=== PATIENT | male | born 1960 | race Hispanic/Latino ===

== ENCOUNTER 2017-07-07 06:13 | Day surgery (SDC) | payer BC ==
[2017-06-30 10:58] VITALS: BMI 29.1
[2017-07-07] MEDS ORDERED: Lidocaine 2% Inj (20ml) ONE (07:29)
[2017-07-07] MEDS ORDERED: Bupivacaine 0.5% Inj(30mL) ONE (07:29)
[2017-07-07] MEDS ORDERED: Propofol 10 mg/ml Inj (20 ML) ONE (07:42)
[2017-07-07] MEDS ORDERED: Midazolam 2 MG/2 ML VIAL ONE (07:44)
[2017-07-07] MEDS ORDERED: Morphine 2 mg/ml ISec IVP PRN (08:09)
[2017-07-07] MEDS ORDERED: Lactated Ringer's 1,000 ML IV SCH (08:15)
[2017-07-07] MEDS ORDERED: Oxycodone/Acetaminophen 5/325 mg Tab PO PRN ×2 (08:41)
--- NOTE | 2017-07-07 08:50 | PCM.SURG1 ---
<Griffin Childs - Last Filed: 07/07/17 08:47> Surgeon's Initial Post Op Note - Surgeon's Notes Surgeon: Dr. Dilip Mckeon DPM Night Clerk Auditor: Dr. Griffin Childs DPM PGY-1 Type of Anesthesia: IV Sedation, Local Anesthesia Administered By: Dr. Briceño Pre-Operative Diagnosis: osteomyelitis of 5th digit to right foot Operative Findings: see dication. materials: 3-0 vicryl, 3-0 nylon, 10cc of 1:1 .5% marcaine plain and 2% lidocaine pain Post-Operative Diagnosis: same Operation Performed: amputation of 5th digit osteomyelitis of right foot Specimen/Specimens Removed: 5th right proximal phalanx Estimated Blood Loss: EBL {In ML}: 5 Blood Products Given: N/A Drains Used: No Drains Post-Op Condition: Good Date of Surgery/Procedure: 07/07/17 Time of Surgery/Procedure: 07:45 <Dilip Mckeon - Last Filed: 07/07/17 11:50> Attending/Attestation - Attestation I have personally seen and examined this patient.: Yes I have fully participated in the care of the patient.: Yes I have reviewed all pertinent clinical information: Yes
--- NOTE | 2017-07-07 08:55 | CP.SDSHP ---
Same Day Surgery H & P - History Proposed Procedure: amputation of 5th digit osteomyelitis of right foot Pre-Op Diagnosis: osteomyelitis of 5th digit to right foot - Previous Medical/Surgical History Endocrine/Metabolic: Diabetes - Allergies Allergies: Allergies No Known Allergies Allergy (Verified 09/13/16 17:07) - Physical Exam Vital Signs: Vital Signs 07/07/17 06:35 Temperature 97.9 F Pulse Rate 75 Respiratory 18 Rate Blood Pressure 126/75 O2 Sat by Pulse 98 Oximetry - {Optional Preform as Required} Integument: WNL - Impression Impression: Pt was seen and examined in SDS. Pt NPO status was confirmed. All Pre-op testing and clearance was in the chart. Pt has exhausted all conservative treatment at this time and is opting for surgical intervention. Pt was explained procedure and post-operative course. All pt's questions were answered to satisfaction. No guarantees were made. Pt understands all risks, benefits and complications of procedure. Pt will follow-up with Dr. Mckeon - Date & Time Date: 07/07/17 Time: 07:40 Short Stay Discharge - Short Stay Discharge Admitting Diagnosis/Reason for Visit: OSTEOMYELITIS M86.171 Disposition: HOME/ ROUTINE Referrals: Juan Kelly MD [Primary Care Provider] - Instructions: Oxycodone/Acetaminophen (By mouth) Additional Instructions (Diet, Activity): --Patient in good/stable condition for discharge home. Pt to resume medications per medical reconciliation. Resume regular diet. Please keep dressing clean, dry, & intact to surgical site, use plastic bag over bandage for showering, wear post op boot at all times when ambulating, call clinic if you see signs of infection (redness, swelling, malodor), please make an appointment to see in office/clinic within 1 week for post-op check. Please rest and elevate as much as possible in the next few days. Progress Note/Discharge Note with Instructions: - Patient evaluated bedside in recovery s/p surgical procedure. - After surgical procedure patient in NAD - (+) Void, (+) Appetite - Capillary refill time <3s and NVSI intact. - Patient denies complaints at this time - Post operative instructions and plan of care explained to patient at length. - Pt. acknowledges understanding. - Patient stable for DC per podiatric surgery
--- NOTE | 2017-07-07 09:36 | RAD ---
PROCEDURE: Right Foot Radiographs. HISTORY: s/p right foot surgery COMPARISON: 06/30/2017 FINDINGS: BONES: Status post amputation 5th digit at metatarsal phalangeal articulation. No evidence of osseous erosion or periosteal reaction. No acute fracture. JOINTS: Normal. SOFT TISSUES: Normal. OTHER FINDINGS: None. IMPRESSION: Indication 5th digit at MTP. Otherwise unremarkable.
[2017-07-07 09:44] VITALS: PULSE 66; RESP 20; TEMP 97.8; O2SAT 96
[2017-07-07 10:21] VITALS: BP 122/75
--- NOTE | 2017-07-10 05:13 | OP ---
PROCEDURE DATE: 07/07/2017 PREOPERATIVE DIAGNOSIS: Right fifth digit osteomyelitis. POSTOPERATIVE DIAGNOSIS: Right fifth digit osteomyelitis. NAME OF PROCEDURE: Amputation of right fifth digit osteomyelitis. SURGEON: Dilip Mckeon DPM DISHING MACHINE OPERATOR: Griffin Childs DPM, PGY1 TYPE OF ANESTHESIA: IV sedation, local. ANESTHESIA ADMINISTERED BY: Dr. Briceño. INDICATION: The patient is a 57-year-old male with the above diagnosis. The patient presents with full thickness ulceration on the right fifth toe measuring approximately 2 cm x 1.2 cm x 0.2 cm to the mid aspect of the right fifth digit with wound base mixture of pale pink and necrotic tissue and osteomyelitis of the right fifth digit. The patient has exhausted all conservative treatments at this time and now requires surgical intervention. The patient signed the consent after careful explanation of risks, benefits, complications and alternatives for surgical procedure. No guarantees were given nor implied. N.p.o. status was confirmed prior to taking the patient to the OR. PREPARATION: The patient was brought into the operating room and placed on the operating room table in supine position. Time out was performed for the identification of the correct patient and procedure. The patient received total of 10 mL of 1:1 mixture of 2% lidocaine plain and 0.5% Marcaine plain in the V-Block fashion to the right fifth digit. The right foot was then prepped and draped in the normal sterile manner and the procedure began. No tourniquet was used during the procedure. DESCRIPTION OF PROCEDURE: Attention was then withdrawn to the dorsal aspect of the right fifth digit, where a fish mouth type incision was made extending from the dorsal aspect of the fifth metatarsal head distally. An incision was made around the fifth digit using a #15-blade and then extended down to the subcutaneous layers down to the level of bone. Using a bone clamp to stabilize the toe, the fifth digit was then articulated from the foot at the level of the fifth right MPJ. Next, the wound was copiously irrigated with sterile saline using a fresh 15-blade. The skin margins were debulked to create a suitable flap for closure. Next, the wound was copiously flushed with sterile saline solution. Next, utilizing a 3-0 Vicryl, the subcutaneous tissue was reapproximated. Next, skin layers were then reapproximated and coapted using a 3-0 nylon using a horizontal mattress and simple suture technique. The right foot was then dressed with Betadine-soaked Adaptic, 4 x 4 gauze, Kerlix and light Coban. POSTOPERATIVE CONDITION: The patient tolerated local anesthesia and procedure well and was escorted to the recovery room with neurovascular status intact to the right foot. The patient is to follow up with Wound Care with Dr. Mckeon within one week. Griffin Childs DPM Dilip Mckeon DPM [email or web address]
== END 2017-07-07 10:45 | disposition home or self-care (01) ==
LOC: SDS 06:13
PROVIDERS: ATTEND Podiatrist
DX: E11.69 Type 2 diabetes mellitus with other specified complication (principal); M86.171 Other acute osteomyelitis, right ankle and foot; E11.621 Type 2 diabetes mellitus with foot ulcer; L97.518 Non-pressure chronic ulcer of other part of right foot with other specified severity; Z79.4 Long term (current) use of insulin
CPT/HCPCS: 28820; 73630; 88305; 88311; J2001; J2250; J2270; J2704; J3010; J7120 ×2

== ENCOUNTER 2018-05-31 08:56 | Emergency (ER) | payer BC ==
[2018-05-31 09:02] VITALS: BMI 30.8
[2018-05-31] MEDS ORDERED: Dextrose 50% SYRINGE Inj (50 ml) ONE (09:05)
--- NOTE | 2018-05-31 09:28 | ED PDOC ---
Arrival/HPI - General Chief Complaint: Weakness/Neurological Deficit Time Seen by Provider: 05/31/18 09:10 Historian: Patient - History of Present Illness Narrative History of Present Illness (Text): 05/31/18 09:19 58 y/o male, pmh including Insulin DM/DKA/HLD, nkda, c/o hypoglycemia episode x 2 hours. Pt. stated that he is insulin dependent DM, woke up this morning to go to work, appear to confused at work which the glucose was around 30s which he didn't give himself any insulin this morning but not sure about last night, D50 was given in the ER which the glucose around 115s now, no fever or chills, no chest pain or shortness of breath, no abdominal or pelvic pain, no other medical or psychological complaints. Past Medical History - Provider Review Nursing Documentation Reviewed: Yes - Past History Past History: No Previous - Infectious Disease Hx of Infectious Diseases: None - Tetanus Immunization Tetanus Immunization: Unknown - Cardiac Hx Cardiac Disorders: No - Pulmonary Hx Respiratory Disorders: (SMOKE H/O QUIT) - Neurological Hx Neurological Disorder: No - HEENT Hx HEENT Disorder: No - Renal Hx Renal Failure: No - Endocrine/Metabolic Hx Endocrine Disorders: (dka) Hx Diabetes Mellitus Type 1: Yes - Hematological/Oncological Hx Blood Disorders: No - Integumentary Hx Dermatological Disorder: No (multiple tatoos) - Musculoskeletal/Rheumatological Hx Musculoskeletal Disorders: Yes (OSTEOMYELITIS) - Gastrointestinal Hx Gastrointestinal Disorders: Yes (gastroparesis) - Genitourinary/Gynecological Hx Genitourinary Disorders: No - Psychiatric Hx Psychophysiologic Disorder: No Hx Substance Use: No (PAST ABUSE-NONE X 29 YRS) - Surgical History Hx Appendectomy: Yes Other/Comment: left shoulder from abcess - Anesthesia Hx Anesthesia Reactions: No Hx Malignant Hyperthermia: No - Suicidal Assessment Feels Threatened In Home Enviroment: No Family/Social History - Physician Review Nursing Documentation Reviewed: Yes Family/Social History: Unknown Family HX Smoking Status: Former Smoker Hx Alcohol Use: No (PAST ETOH-NONE X 19YRS) Hx Substance Use: No (PAST ABUSE-NONE X 29 YRS) Hx Substance Use Treatment: No Allergies/Home Meds Allergies/Adverse Reactions: Allergies No Known Allergies Allergy (Verified 05/31/18 09:59) Home Medications: Home Meds Medication Instructions Recorded Confirmed Insulin Aspart/Insulin Aspar 50 units SC ACHS 06/30/17 05/31/18 [Novolog Mix 70/30 (70/30 units/ml)] Review of Systems - Review of Systems Constitutional: absent: Fatigue, Fevers Eyes: absent: Vision Changes ENT: absent: Hearing Changes Respiratory: absent: SOB, Cough Cardiovascular: absent: Chest Pain Gastrointestinal: absent: Abdominal Pain, Nausea, Vomiting Skin: absent: Rash, Pruritis Neurological: absent: Headache Psychiatric: absent: Anxiety, Depression, Suicidal Ideation Physical Exam Vital Signs Reviewed: Yes Vital Signs Temp Pulse Resp BP Pulse Ox 05/31/18 13:14 93 H 18 132/76 100 05/31/18 11:15 93 H 18 131/70 99 05/31/18 09:07 98.8 F 88 17 147/87 98 Temperature: Afebrile Blood Pressure: Normal Pulse: Regular Respiratory Rate: Normal Appearance: Positive for: Well-Appearing, Non-Toxic, Comfortable Pain Distress: None Mental Status: Positive for: Alert and Oriented X 3 Finger Stick Blood Glucose: 30 - Systems Exam Head: Present: Atraumatic, Normocephalic Pupils: Present: PERRL Extroacular Muscles: Present: EOMI Conjunctiva: Present: Normal Mouth: Present: Moist Mucous Membranes Neck: Present: Normal Range of Motion Respiratory/Chest: Present: Clear to Auscultation, Good Air Exchange. No: Respiratory Distress, Accessory Muscle Use Cardiovascular: Present: Regular Rate and Rhythm, Normal S1, S2. No: Murmurs Abdomen: No: Tenderness, Distention, Peritoneal Signs Back: Present: Normal Inspection Upper Extremity: Present: Normal Inspection. No: Cyanosis, Edema Lower Extremity: Present: Normal Inspection. No: Edema Neurological: Present: GCS=15, CN II-XII Intact, Speech Normal Skin: Present: Warm, Dry, Normal Color. No: Rashes Psychiatric: Present: Alert, Oriented x 3, Normal Insight, Normal Concentration Medical Decision Making ED Course and Treatment: 05/31/18 09:33 Differential: DKA vs. Dehydration vs. UTI/Pneumonia vs. Hypoglycemia vs. electrolyte imbalance -Labs/vbg/ua -cxr -cardiac care unit nurse -observe and reassess 05/31/18 10:31 -Chest xray show Possible right apical mass this may be related to the anterior end of the 1st rib. . Recommend further evaluation with computed tomography of the chest or apical lordotic frontal chest radiograph. CT Chest aded by me w/o contrast as recommended by the radiologist over the phone. -Labs show no acute findings except glucose 39 (this is before D50 given to the patient) but its 115 now. -VBG lactic acid within normal limit, Ph 7.34 within normal reference range of 7.32-7.43 05/31/18 14:23 -Pt. refused to provide the UA -Food trade provided to the patient and the glucose been monitor in the ER. . I recommend him to be admitted for observation of his glucose, AMA paper requested by the patient, signed and he was aox3. -IV Rocephine and azithromycin ordered for him as the CT chest show bilateral infiltrates, normal wbc and he has very mild coughing, offer admission but he declined. 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 -AMA You sign out against medical advice. You were recommended and offered to be admitted to the hospital for monitor for your glucose/diabete and IV antibiotics for your bilateral pneumonia but you refused. You can return to the ER any time for admission and further evaluation. Please follow up with your own pmd and specialist as soon as possible, return to the ER for any new or worsening signs or symptoms. You are given augmentin and azithromycin, take coughing suppressant as needed. - Lab Interpretations Lab Results: 05/31/18 09:00 05/31/18 09:00 Lab Results 05/31/18 12:53: POC Glucose (mg/dL) 75 05/31/18 09:30: POC Glucose (mg/dL) 115 H 05/31/18 09:00: WBC 4.7, RBC 5.15, Hgb 14.0, Hct 41.4 L, MCV 80.4, MCH 27.2, MCHC 33.8, RDW 13.3, Plt Count 189, MPV 11.6 H, Gran % 72.1 H, Lymph % (Auto) 21.5 L, [place] % (Auto) 5.4, Eos % (Auto) 0.6 L, Baso % (Auto) 0.4, Gran # 3.36, Lymph # (Auto) 1.0 L, [place] # (Auto) 0.3, Eos # (Auto) 0.0, Baso # (Auto) 0.02 05/31/18 09:00: Sodium 147, Chloride 105, Potassium 3.8, Carbon Dioxide 32, Anion Gap 14, BUN 23 H, Creatinine 0.8, Est GFR ( Amer) > 60, Est GFR ( Non-Af Amer) > 60, Random Glucose 39 L* D, Calcium 9.9, Magnesium 2.1, Total Bilirubin 0.8, AST 33, ALT 22, Alkaline Phosphatase 76, Total Protein 7.9, Albumin 4.4, Globulin 3.4, Albumin/Globulin Ratio 1.3 05/31/18 09:00: pO2 36, VBG pH 7.34, VBG pCO2 62.0 H, VBG HCO3 33.4 H, VBG Total CO2 35.3 H, VBG O2 Sat (Calc) 75.3 H, VBG Base Excess 5.6 H, VBG Potassium 3.8, Sodium 146.0, Chloride 109.0 H, Glucose 39 L* D, Lactate 1.2, FiO2 21.0, Venous Blood Potassium 3.8 - RAD Interpretation Radiology Orders: 05/31/18 09:29 CHEST PORTABLE [RAD] Stat 05/31/18 10:28 CHEST W/O CONTRAST [CT] Stat 05/31/2018 HISTORY: medical clearance COMPARISON: 06/30/2017 FINDINGS: LUNGS: Possible mass in right lung apex. This lies over the anterior end of the right 1st rib and may be bony in origin. Recommend further evaluation with computed tomography of the chest. No other mass identified. No pulmonary infiltrate. PLEURA: No significant pleural effusion identified, no pneumothorax apparent. CARDIOVASCULAR: Normal. OSSEOUS STRUCTURES: No significant abnormalities. VISUALIZED UPPER ABDOMEN: Normal. OTHER FINDINGS: None. IMPRESSION: Possible right apical mass this may be related to the anterior end of the 1st rib. . Recommend further evaluation with computed tomography of the chest or apical lordotic frontal chest radiograph. . Findings discussed with physician assistant Barrientos by telephone at 10:20 a.m. on 05/31/2018. Lead Miner: Radiologist - Medication Orders Current Medication Orders: Discontinued Medications Ceftriaxone Sodium (Rocephin 1 Gram Ivpb) 1 gm in 100 mls @ 200 mls/hr IVPB STAT STA PRN Reason: Protocol Stop: 05/31/18 12:19 Last Admin: 05/31/18 12:39 Dose: 200 mls/hr eMAR Start Stop Document 05/31/18 12:39 [id number] Intravenous Solution Start Date 05/31/18 Start Time 12:39 End Date 05/31/18 End time 13:10 Total Infusion Time 31 Azithromycin (Zithromax 500mg In Ns) 500 mg in 250 mls @ 167 mls/hr IVPB STAT STA PRN Reason: Protocol Stop: 05/31/18 13:19 Last Admin: 05/31/18 13:43 Dose: 167 mls/hr eMAR Start Stop Document 05/31/18 13:43 [facility] [place] (Rec: 05/31/18 13:44 [id number] Intravenous Solution Start Date 05/31/18 Start Time 13:43 End Date 05/31/18 End time 15:15 Total Infusion Time 92 - PA / MILL WORKER / Resident Statement MD/DO has reviewed & agrees with the documentation as recorded. Disposition/Present on Arrival - Present on Arrival Any Indicators Present on Arrival: No History of DVT/PE: No History of Uncontrolled Diabetes: No Urinary Catheter: No History of Decub. Ulcer: No History Surgical Site Infection Following: None - Disposition Have Diagnosis and Disposition been Completed?: Yes Diagnosis: Hypoglycemia, Bilateral pneumonia, Non-compliance Disposition: AGAINST MEDICAL ADVICE Disposition Time: 10:32 Patient Plan: Other (against medical advance) Patient Problems: Current Active Problems Problem Status Onset Hypoglycemia Acute Bilateral pneumonia Acute Non-compliance Acute Condition: GOOD Additional Instructions: You sign out against medical advice. You were recommended and offered to be admitted to the hospital for monitor for your glucose/diabete and IV antibiotics for your bilateral pneumonia but you refused. You can return to the ER any time for admission and further evaluation. Please follow up with your own pmd and specialist as soon as possible, return to the ER for any new or worsening signs or symptoms. You are given augmentin and azithromycin, take coughing suppressant as needed. Prescriptions: Amoxicillin/Potassium Clav [Augmentin Xr 1,000-62.5 Tab] 2 tab PO BID #40 tab Azithromycin 250 mg PO DAILY #4 tab Referrals: [facility] [place] - Follow up with primary Susu Andrade MD [Medical Doctor] - Follow up with primary Anamaria Pope MD [Staff Provider] - Follow up with primary Rehan Delacruz MD [Staff Provider] - Follow up with primary Forms: [employer] (Korean), WORK NOTE
[2018-05-31 09:55] LABS: VENOUS BLOOD GAS BASE EXCESS 5.6 mmol/L (0.0-2.0); VENOUS BLOOD GAS PO2 36 mm/Hg (30-55); VENOUS BLOOD PH 7.34 (7.32-7.43)
[2018-05-31 10:05] LABS: BASO # 0.02 K/mm3 (0.0-2.0); BASO % 0.4 % (0.0-3.0); EOS % 0.6 % (1.5-5.0); GRAN # 3.36 (1.4-6.5); GRAN % 72.1 % (50.0-68.0); LYMPH % 21.5 % (22.0-35.0); MEAN CELL VOLUME 80.4 fl (80.0-105.0); MEAN CORPUSCULAR HEMOGLOBIN 27.2 pg (25.0-35.0); MEAN CORPUSCULAR HGB CONC 33.8 g/dl (31.0-37.0); MEAN PLATELET VOLUME 11.6 fl (7.0-11.0); MONO # 0.3 (0.1-0.6); MONO % 5.4 % (1.0-6.0); RBC 5.15 10^6/uL (3.5-6.1); RED CELL DISTRIBUTION WIDTH 13.3 % (11.5-14.5); WHITE BLOOD COUNT 4.7 10^3/ul (4.5-11.0)
[2018-05-31 10:21] LABS: ALB/GLOB RATIO 1.3 (1.1-1.8); ALBUMIN 4.4 g/dL (3.0-4.8); ALT/SGPT 22 U/L (7-56); AST/SGOT 33 U/L (17-59); BLOOD UREA NITROGEN 23 mg/dL (7-21); CALCIUM 9.9 mg/dL (8.4-10.5); GFR NON-AFRICAN AMERICAN > 60
--- NOTE | 2018-05-31 10:21 | RAD ---
Date of service: 05/31/2018 HISTORY: medical clearance COMPARISON: 06/30/2017 FINDINGS: LUNGS: Possible mass in right lung apex. This lies over the anterior end of the right 1st rib and may be bony in origin. Recommend further evaluation with computed tomography of the chest. No other mass identified. No pulmonary infiltrate. PLEURA: No significant pleural effusion identified, no pneumothorax apparent. CARDIOVASCULAR: Normal. OSSEOUS STRUCTURES: No significant abnormalities. VISUALIZED UPPER ABDOMEN: Normal. OTHER FINDINGS: None. IMPRESSION: Possible right apical mass this may be related to the anterior end of the 1st rib. . Recommend further evaluation with computed tomography of the chest or apical lordotic frontal chest radiograph. . Findings discussed with physician assistant Barrientos by telephone at 10:20 a.m. on 05/31/2018.
--- NOTE | 2018-05-31 11:24 | CT ---
Date of service: 05/31/2018 PROCEDURE: CT Chest without contrast HISTORY: rt. apical mass? COMPARISON: Chest x-ray 05/31/2018 TECHNIQUE: Contiguous axial images were obtained through the chest without intravenous contrast enhancement. Sagittal and coronal reconstructions were performed. Radiation dose (DLP): 604 mGy-cm. This CT exam was performed using one or more of the following dose reduction techniques: Automated exposure control, adjustment of the mA and/or kV according to patient size, and/or use of iterative reconstruction technique. FINDINGS: LUNGS: There is no evidence of an apical lung mass. The density seen on chest x-ray corresponds to the end of the 1st rib at the junction of the sternum. There is an interstitial infiltrate in the posterior aspect of the right upper lobe and in the left lower lobe. Findings are suspicious for pneumonia. Clinical correlation is suggested MEDIASTINUM: Unremarkable thoracic aorta. No aneurysm. Normal sized heart. Main pulmonary artery unremarkable. No vascular congestion. No lymphadenopathy. PLEURA: No pleural fluid. No pneumothorax. BONES: No fracture. No destructive lesion. UPPER ABDOMEN: Grossly unremarkable. OTHER FINDINGS: None. IMPRESSION: There is no evidence of an apical lung mass. The density seen on chest x-ray corresponds to the end of the 1st rib at the junction of the sternum. There is an interstitial infiltrate in the posterior aspect of the right upper lobe and in the left lower lobe. Findings are suspicious for pneumonia. Clinical correlation is suggested
[2018-05-31] MEDS ORDERED: Azithromycin 500MG/NS 250ml 500 MG/250 ML BAG IVPB STA (11:50)
[2018-05-31] MEDS ORDERED: cefTRIAXone 1 gm 1 GM/100 ML BAG IVPB STA (11:50)
[2018-05-31 13:14] VITALS: RESP 18; O2SAT 100
[2018-05-31 16:29] VITALS: BP 102/70; PULSE 90; TEMP 98.4
== END 2018-05-31 16:40 | disposition left against medical advice (07) ==
LOC: ED 08:56
DX: E11.649 Type 2 diabetes mellitus with hypoglycemia without coma (principal); Z79.4 Long term (current) use of insulin; J18.9 Pneumonia, unspecified organism; E78.5 Hyperlipidemia, unspecified; Z87.891 Personal history of nicotine dependence
CPT/HCPCS: 71045; 71250; 80053; 82803; 82948; 83735; 85025; 96365; 96366; 96367; 99285; J0456; J0696

== ENCOUNTER 2018-06-09 14:22 | Emergency (ER) | payer BC ==
[2018-06-09 14:37] VITALS: BMI 29.1
[2018-06-09] MEDS ORDERED: Dextrose 50% SYRINGE Inj (50 ml) IVP STA (14:38)
[2018-06-09] MEDS: Dextrose 50% SYRINGE Inj (50 ml) ONE ×2 (14:40→15:00)
[2018-06-09 15:09] LABS: BASO # 0.01 K/mm3 (0.0-2.0); BASO % 0.1 % (0.0-3.0); EOS # 0.1 (0.0-0.7); EOS % 0.7 % (1.5-5.0); GRAN # 5.87 (1.4-6.5); GRAN % 81.5 % (50.0-68.0); MEAN CORPUSCULAR HEMOGLOBIN 27.5 pg (25.0-35.0); MEAN CORPUSCULAR HGB CONC 33.6 g/dl (31.0-37.0); MEAN PLATELET VOLUME 10.9 fl (7.0-11.0); MONO # 0.3 (0.1-0.6); MONO % 3.7 % (1.0-6.0); RBC 4.72 10^6/uL (3.5-6.1); RED CELL DISTRIBUTION WIDTH 13.6 % (11.5-14.5); WHITE BLOOD COUNT 7.2 10^3/ul (4.5-11.0)
--- NOTE | 2018-06-09 15:21 | ED PDOC ---
Arrival/HPI - General Chief Complaint: Altered Mental Status Time Seen by Provider: 06/09/18 14:36 Historian: Patient - History of Present Illness Narrative History of Present Illness (Text): 06/09/18 15:19 58 yo M w/ pmh of DM on insulin, he takes humilin 70/30, brought in by ambulance for hypoglycemia, the episode occurred at work. Patient states that he does not recall what happened, what brought him here and how he got here. He admits taking his insulin this AM, admits to eating breakfast and lunch (1/2 sandwich). Patient otherwise reports (-) lightheadedness, (-) trauma, (-) headache, (-) tinnitus, (-) hearing loss, (-) chest pain, (-) dyspnea, (-) fever , (-) nausea / vomiting, (-) abdominal pain, (-) urinary symptoms, (-) diarrhea , (-) GI bleeding. Upon arrival his FS was 31. Past Medical History - Past History Past History: No Previous - Infectious Disease Hx of Infectious Diseases: None - Tetanus Immunization Tetanus Immunization: Unknown - Cardiac Hx Cardiac Disorders: No - Pulmonary Hx Respiratory Disorders: (SMOKE H/O QUIT) - Neurological Hx Neurological Disorder: No - HEENT Hx HEENT Disorder: No - Renal Hx Renal Failure: No - Endocrine/Metabolic Hx Endocrine Disorders: (dka) Hx Diabetes Mellitus Type 1: Yes - Hematological/Oncological Hx Blood Disorders: No - Integumentary Hx Dermatological Disorder: No (multiple tatoos) - Musculoskeletal/Rheumatological Hx Musculoskeletal Disorders: Yes (OSTEOMYELITIS) - Gastrointestinal Hx Gastrointestinal Disorders: Yes (gastroparesis) - Genitourinary/Gynecological Hx Genitourinary Disorders: No - Psychiatric Hx Psychophysiologic Disorder: (SMOKE AND ALCOHOL DRINKER H/O) Hx Substance Use: No (PAST ABUSE-NONE X 29 YRS) - Surgical History Hx Appendectomy: Yes Other/Comment: left shoulder from abcess - Anesthesia Hx Anesthesia Reactions: No Hx Malignant Hyperthermia: No - Suicidal Assessment Feels Threatened In Home Enviroment: No Family/Social History Family/Social History: No Known Family HX Smoking Status: Former Smoker Hx Alcohol Use: No (PAST ETOH-NONE X 19YRS) Hx Substance Use: No (PAST ABUSE-NONE X 29 YRS) Hx Substance Use Treatment: No Allergies/Home Meds Allergies/Adverse Reactions: Allergies No Known Allergies Allergy (Verified 06/09/18 14:40) Home Medications: Home Meds Medication Instructions Recorded Confirmed Insulin Aspart/Insulin Aspar 50 units SC ACHS 06/30/17 06/09/18 [Novolog Mix 70/30 (70/30 units/ml)] Review of Systems - Review of Systems Constitutional: Other (weak). absent: Fatigue, Fevers Respiratory: absent: SOB, Cough Cardiovascular: absent: Chest Pain, Palpitations Gastrointestinal: absent: Abdominal Pain, Diarrhea, Vomiting Genitourinary Male: absent: Dysuria, Frequency Musculoskeletal: absent: Arthralgias, Back Pain, Neck Pain Skin: absent: Rash, Pruritis Neurological: absent: Headache, Dizziness Endocrine: Other (hypoglycemia). absent: Diaphoresis, Polyuria, Polydipsia Physical Exam Vital Signs Temp Pulse Resp BP Pulse Ox 06/09/18 18:45 99.2 F 77 16 133/80 98 06/09/18 14:37 97.5 F L 87 17 138/81 97 06/09/18 14:22 97.5 F L 87 17 138/81 97 Temperature: Afebrile Blood Pressure: Normal Pulse: Regular Respiratory Rate: Normal Appearance: Positive for: Well-Appearing, Non-Toxic, Comfortable Pain Distress: None Mental Status: Positive for: Alert and Oriented X 3 Finger Stick Blood Glucose: 31 - Systems Exam Head: Present: Atraumatic, Normocephalic Pupils: Present: PERRL Extroacular Muscles: Present: EOMI Conjunctiva: Present: Normal Mouth: Present: Moist Mucous Membranes Neck: Present: Normal Range of Motion Respiratory/Chest: Present: Clear to Auscultation, Good Air Exchange. No: Respiratory Distress, Accessory Muscle Use Cardiovascular: Present: Regular Rate and Rhythm, Normal S1, S2. No: Murmurs Abdomen: No: Tenderness, Distention, Peritoneal Signs Back: Present: Normal Inspection Upper Extremity: Present: Normal Inspection. No: Cyanosis, Edema Lower Extremity: Present: Normal Inspection. No: Edema Neurological: Present: GCS=15, CN II-XII Intact, Speech Normal, Motor Func Grossly Intact, Normal Sensory Function Skin: Present: Warm, Dry, Normal Color. No: Rashes Psychiatric: Present: Alert, Oriented x 3, Normal Insight, Normal Concentration Medical Decision Making ED Course and Treatment: 06/09/18 15:17 Plan : - Labs - IV - Dextrose IV - FS FS upon arrival 31. 15:45 FS 215 Lab results d/w the patient. Patient remains AAOx3 with a normal neuro exam. 18:00 FS 153 Ready for dc. He is still AAOx3. 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 Advised to eat dinner tonight, check his FS 2 hours after eating, then to eat a snack prior to going to bed and to not take his evening dose of his insulin for now. Return to the emergency room at any time for any new or worsening symptoms. Patient states he fully agrees with and understands discharge instructions. States that he agrees with the plan and disposition. Verbalized and repeated discharge instructions and plan. I have given the patient opportunity to ask any additional questions. - Lab Interpretations Lab Results: 06/09/18 14:40 06/09/18 14:40 Lab Results 06/09/18 18:00: POC Glucose (mg/dL) 153 H 06/09/18 15:45: POC Glucose (mg/dL) 215 H 06/09/18 14:40: Sodium 147, Potassium 4.1, Chloride 105, Carbon Dioxide 31, Anion Gap 15, BUN 23 H, Creatinine 0.9, Est GFR ( Amer) > 60, Est GFR ( Non-Af Amer) > 60, Random Glucose 44 L*, Calcium 9.9, Total Bilirubin 0.9, AST 30, ALT 35, Alkaline Phosphatase 73, Total Protein 8.1, Albumin 4.7, Globulin 3.4, Albumin/Globulin Ratio 1.4 06/09/18 14:40: WBC 7.2 D, RBC 4.72, Hgb 13.0 L, Hct 38.7 L, MCV 82.0, MCH 27.5 , MCHC 33.6, RDW 13.6, Plt Count 254, MPV 10.9, Gran % 81.5 H, Lymph % (Auto) 14.0 L, Jefferson % (Auto) 3.7, Eos % (Auto) 0.7 L, Baso % (Auto) 0.1, Gran # 5.87, Lymph # (Auto) 1.0 L, Jefferson # (Auto) 0.3, Eos # (Auto) 0.1, Baso # (Auto) 0.01 06/09/18 14:26: POC Glucose (mg/dL) 31 L* - Medication Orders Current Medication Orders: Discontinued Medications Dextrose (Dextrose 50% Inj) 50 ml IVP STAT STA Stop: 06/09/18 14:39 Last Admin: 06/09/18 15:01 Dose: - PA / [employer]INO [employer]PECTOR / Resident Statement / has reviewed & agrees with the documentation as recorded. Disposition/Present on Arrival - Present on Arrival Any Indicators Present on Arrival: No History of DVT/PE: No History of Uncontrolled Diabetes: No Urinary Catheter: No History of Decub. Ulcer: No History Surgical Site Infection Following: None - Disposition Have Diagnosis and Disposition been Completed?: Yes Diagnosis: Hypoglycemia Disposition: HOME/ ROUTINE Disposition Time: 19:00 Patient Plan: Discharge Condition: STABLE Discharge Instructions (ExitCare): Low Blood Sugar, Adult (DC) Additional Instructions: Thank you for letting us take care of you today. You were treated for hypoglycemia. The emergency medical care you received today was directed at your acute symptoms. Eat dinner tonight and have a snack, check your FS before going to sleep and do not take you insulin tonight. Return to the Emergency Department if your symptoms worsen, do not improve, or if you have any other problems. Please contact your doctor and ice skating coach in 1-2 days for re-evaluation and follow up. Bring any paperwork you were given at discharge with you along with any medications you are taking to your follow up visit. Our treatment cannot replace ongoing medical care by a primary care provider (PCP) outside of the emergency department. Thank you for allowing the [facility] team to be part of your care today. Referrals: Juan Kelly MD [Primary Care Provider] - Follow up with primary Forms: [employer] (Panamanian), WORK NOTE
[2018-06-09 15:28] LABS: ALB/GLOB RATIO 1.4 (1.1-1.8); ALBUMIN 4.7 g/dL (3.0-4.8); ALT/SGPT 35 U/L (7-56); AST/SGOT 30 U/L (17-59); BLOOD UREA NITROGEN 23 mg/dL (7-21); CALCIUM 9.9 mg/dL (8.4-10.5); GFR NON-AFRICAN AMERICAN > 60
[2018-06-09 18:47] VITALS: BP 133/80; PULSE 77; RESP 16; TEMP 99.2; O2SAT 98
== END 2018-06-09 18:45 | disposition home or self-care (01) ==
LOC: ED 14:22
DX: E11.649 Type 2 diabetes mellitus with hypoglycemia without coma (principal); Z79.4 Long term (current) use of insulin

== ENCOUNTER 2018-09-11 06:11 | Emergency (ER) | payer BC ==
[2018-09-11 06:12] VITALS: BMI 29.1
[2018-09-11 06:36] LABS: BASO # 0.02 K/mm3 (0.0-2.0); BASO % 0.3 % (0.0-3.0); EOS # 0.2 (0.0-0.7); EOS % 3.6 % (1.5-5.0); GRAN # 2.31 (1.4-6.5); GRAN % 34.3 % (50.0-68.0); LYMPH # 3.8 (1.2-3.4); LYMPH % 55.9 % (22.0-35.0); MEAN CELL VOLUME 80.5 fl (80.0-105.0); MEAN CORPUSCULAR HEMOGLOBIN 27.2 pg (25.0-35.0); MEAN CORPUSCULAR HGB CONC 33.8 g/dl (31.0-37.0); MEAN PLATELET VOLUME 11.7 fl (7.0-11.0); MONO # 0.4 (0.1-0.6); MONO % 5.9 % (1.0-6.0); RBC 5.14 10^6/uL (3.5-6.1); RED CELL DISTRIBUTION WIDTH 13.3 % (11.5-14.5); WHITE BLOOD COUNT 6.7 10^3/uL (4.5-11.0)
--- NOTE | 2018-09-11 06:41 | ED PDOC ---
Arrival/HPI - General Chief Complaint: Altered Mental Status Time Seen by Provider: 09/11/18 06:27 Historian: Patient - History of Present Illness Narrative History of Present Illness (Text): 09/11/18 06:34 Patient to ED past medical history of diabetes mellitus,hypothyroidism,HLD by ambulance following period of unresponsiveness at home.As per collateral information obtained patient family noted possible low blood sugar.On arrival by EMS pts. BS was noted not to be high.Pt. was awake but confused.Patient now questioned is unaware what happened to him.Knows he is in the hospital at [place] but confused about the time.Denies any alcohol or drug use.No chest pain,sob,nausea,vomiting,abdominal pain,headache. Past Medical History - Provider Review Nursing Documentation Reviewed: Yes - Travel History Have you recently traveled outside [place] w/in the past 3 mons?: No - Past History Past History: No Previous - Infectious Disease Hx of Infectious Diseases: None - Tetanus Immunization Tetanus Immunization: Unknown - Cardiac Hx Cardiac Disorders: No - Pulmonary Hx Respiratory Disorders: (SMOKE H/O QUIT) - Neurological Hx Neurological Disorder: No - HEENT Hx HEENT Disorder: No - Renal Hx Renal Failure: No - Endocrine/Metabolic Hx Endocrine Disorders: (dka) Hx Diabetes Mellitus Type 1: Yes - Hematological/Oncological Hx Blood Disorders: No - Integumentary Hx Dermatological Disorder: No (multiple tatoos) - Musculoskeletal/Rheumatological Hx Musculoskeletal Disorders: Yes (OSTEOMYELITIS) - Gastrointestinal Hx Gastrointestinal Disorders: Yes (gastroparesis) - Genitourinary/Gynecological Hx Genitourinary Disorders: No - Psychiatric Hx Psychophysiologic Disorder: (SMOKE AND ALCOHOL DRINKER H/O) Hx Substance Use: No (PAST ABUSE-NONE X 29 YRS) - Surgical History Hx Appendectomy: Yes Other/Comment: left shoulder from abcess - Anesthesia Hx Anesthesia Reactions: No Hx Malignant Hyperthermia: No - Suicidal Assessment Feels Threatened In Home Enviroment: No Family/Social History - Physician Review Nursing Documentation Reviewed: Yes Family/Social History: Diabetes Smoking Status: Former Smoker Hx Alcohol Use: No (PAST ETOH-NONE X 19YRS) Hx Substance Use: No (PAST ABUSE-NONE X 29 YRS) Hx Substance Use Treatment: No Allergies/Home Meds Allergies/Adverse Reactions: Allergies No Known Allergies Allergy (Verified 06/09/18 14:40) Home Medications: Home Meds Medication Instructions Recorded Confirmed Insulin Aspart/Insulin Aspar 50 units SC ACHS 06/30/17 06/09/18 [Novolog Mix 70/30 (70/30 units/ml)] Atorvastatin [Lipitor] 20 mg PO DAILY 09/11/18 09/11/18 Levothyroxine [Synthroid] 50 mcg PO DAILY 09/11/18 09/11/18 Review of Systems - Review of Systems Constitutional: Normal Eyes: Normal ENT: Normal Respiratory: Normal Cardiovascular: Normal Gastrointestinal: Normal Genitourinary Male: Normal Musculoskeletal: Normal Skin: Normal Neurological: Other (confused) Endocrine: Normal Hemo/Lymphatic: Normal Psychiatric: Normal Physical Exam Temperature: Afebrile Blood Pressure: Normal Pulse: Regular Respiratory Rate: Normal Appearance: Positive for: Well-Appearing, Non-Toxic, Comfortable Pain Distress: None Mental Status: Positive for: Confused - Systems Exam Head: Present: Atraumatic, Normocephalic Pupils: Present: PERRL Extroacular Muscles: Present: EOMI Conjunctiva: Present: Normal Ears: Present: NORMAL TM Mouth: Present: Moist Mucous Membranes Pharnyx: Present: Normal Neck: Present: Normal Range of Motion Respiratory/Chest: Present: Clear to Auscultation, Good Air Exchange. No: Respiratory Distress, Accessory Muscle Use Cardiovascular: Present: Regular Rate and Rhythm, Normal S1, S2. No: Murmurs Abdomen: No: Tenderness, Distention, Peritoneal Signs Back: Present: Normal Inspection Upper Extremity: Present: Normal Inspection. No: Cyanosis, Edema Lower Extremity: Present: Normal Inspection. No: Edema Neurological: Present: GCS=15, CN II-XII Intact, Speech Normal, Motor Func Grossly Intact, Normal Sensory Function Skin: Present: Warm, Dry, Normal Color. No: Rashes Psychiatric: Present: Alert, Other (oriented to person/place) Medical Decision Making ED Course and Treatment: 09/11/18 07:00 Case endorsed to /pending labs/CT scan Head/reassess/final disposition - RAD Interpretation Radiology Orders: 09/11/18 06:22 CHEST PORTABLE [RAD] Stat - EKG Interpretation EKG Interpretation (Text): 09/11/18 07:00 EKG-NSR@ 87 prolonged QT,NSSTT changes Interpreted by ED Physician: Yes Type: 12 lead EKG Disposition/Present on Arrival - Present on Arrival Any Indicators Present on Arrival: No History of DVT/PE: No History of Uncontrolled Diabetes: No Urinary Catheter: No History of Decub. Ulcer: No History Surgical Site Infection Following: None - Disposition Have Diagnosis and Disposition been Completed?: No Diagnosis: Altered mental status Disposition Time: 07:00 Condition: STABLE Forms: [employer] (Welsh)
[2018-09-11 06:42] LABS: INR 0.93; PARTIAL THROMBOPLASTIN TIME 26.1 Seconds (25.1-36.5); PROTHROMBIN TIME 10.7 SECONDS (9.4-12.5)
[2018-09-11 06:45] LABS: ALB/GLOB RATIO 1.5 (1.1-1.8); ALBUMIN 4.4 g/dL (3.0-4.8); ALT/SGPT 21 U/L (7-56); AST/SGOT 27 U/L (17-59); BLOOD UREA NITROGEN 20 mg/dL (7-21); CALCIUM 9.4 mg/dL (8.4-10.5); GFR NON-AFRICAN AMERICAN > 60
[2018-09-11] MEDS ORDERED: Potassium Chloride 20 mEq ER Tab PO STA (06:52)
[2018-09-11 06:55] LABS: TROPONIN I < 0.01 ng/mL
--- NOTE | 2018-09-11 08:05 | RAD ---
Date of service: 09/11/2018 HISTORY: AMS COMPARISON: Portable chest and chest CT without contrast 05/31/2018. FINDINGS: LUNGS: No active pulmonary disease. PLEURA: No significant pleural effusion identified, no pneumothorax apparent. CARDIOVASCULAR: No aortic atherosclerotic calcification present. Normal cardiac size. No pulmonary vascular congestion. OSSEOUS STRUCTURES: Prominence of the 1st costosternal junction reiterated as proved by chest CT 05/31/2018. VISUALIZED UPPER ABDOMEN: Normal. OTHER FINDINGS: None. IMPRESSION: No definite interval acute cardiopulmonary disease appreciable.
[2018-09-11 08:06] VITALS: RESP 16
--- NOTE | 2018-09-11 08:50 | ED PDOC ---
Physical Exam Vital Signs Temp Pulse Resp BP Pulse Ox 09/11/18 08:02 79 16 134/76 97 09/11/18 06:12 97.3 F L 73 18 115/70 95 Finger Stick Blood Glucose: 173 Medical Decision Making ED Course and Treatment: 09/11/18 07:00 Case endorsed to me by Dr. Martin. Pending labs, CT Head results, reassessment and final disposition. 09/11/2018 10:[address] IMPRESSION: Unremarkable non-contrast head CT. No signal change fibroid CT dated 03/01/2018. [facility] 09[facility]11[facility]2018 07:13. Dictator: Micah White MD 09/11/18 11:16 Repeat accucheck is 131. Labs and imaging that were pending at shift change were d/w patient and at the bedside. Patient and state he is a labile diabetic and has had episodes of hypoglycemia many times previously. states she gave patient glucagon for glucose of 61 at home this am and step daughter called EMS. Patient is now back to his baseline and is requesting discharge home. He is stable for d/c and received verbal and written instructions to f/u w/his pcp in 1-2 days and RTED for new or concerning symptoms. He verbalized and was given the opportunity to ask questions. - Lab Interpretations Lab Results: 09/11/18 06:15 09/11/18 06:15 Lab Results 09/11/18 06:20: Lactate Dehydrogenase 395, Total Creatine Kinase 98, Troponin I < 0.01 09/11/18 06:15: TSH 3rd Generation 17.00 H 09/11/18 06:15: Sodium 142, Potassium 3.1 L, Chloride 104, Carbon Dioxide 22, Anion Gap 19, BUN 20, Creatinine 0.9, Est GFR ( Amer) > 60, Est GFR (Non- Af Amer) > 60, Random Glucose 113 H, Calcium 9.4, Total Bilirubin 0.9, AST 27, ALT 21, Alkaline Phosphatase 72, Total Protein 7.3, Albumin 4.4, Globulin 2.9, Albumin/Globulin Ratio 1.5 09/11/18 06:15: PT 10.7, INR 0.93, APTT 26.1 09/11/18 06:15: WBC 6.7, RBC 5.14, Hgb 14.0, Hct 41.4 L, MCV 80.5, MCH 27.2, MCHC 33.8, RDW 13.3, Plt Count 187, MPV 11.7 H, Gran % 34.3 L, Lymph % (Auto) 55.9 H, Rankin % (Auto) 5.9, Eos % (Auto) 3.6, Baso % (Auto) 0.3, Gran # 2.31, Lymph # (Auto) 3.8 H, Rankin # (Auto) 0.4, Eos # (Auto) 0.2, Baso # (Auto) 0.02 - RAD Interpretation Radiology Orders: 09/11/18 06:22 CHEST PORTABLE [RAD] Stat 09/11/18 06:42 HEAD W/O CONTRAST [CT] Stat - Medication Orders Current Medication Orders: Discontinued Medications Potassium Chloride (K-Dur 20 Meq Er Tab) 40 meq PO STAT STA Stop: 09/11/18 06:53 Last Admin: 09/11/18 08:28 Dose: 40 meq - Scribe Statement The provider has reviewed the documentation as recorded by the Reji Turcios Provider Scribe Attestation: All medical record entries made by the Reji were at my direction and personally dictated by me. I have reviewed the chart and agree that the record accurately reflects my personal performance of the history, physical exam, medical decision making, and the department course for this patient. I have also personally directed, reviewed, and agree with the discharge instructions and disposition. Disposition/Present on Arrival - Present on Arrival Any Indicators Present on Arrival: Yes History of DVT/PE: No History of Uncontrolled Diabetes: Yes Urinary Catheter: No History of Decub. Ulcer: No History Surgical Site Infection Following: None - Disposition Have Diagnosis and Disposition been Completed?: Yes Diagnosis: Altered mental status, Hyperglycemia, Hypoglycemia, Hypokalemia, Hypothyroidism Disposition: HOME/ ROUTINE Disposition Time: 11:24 Patient Plan: Discharge Patient Problems: Current Active Problems Problem Status Onset Altered mental status Acute Condition: STABLE Discharge Instructions (ExitCare): Hyperglycemia, Adult (DC), Low Blood Sugar, Adult (DC), Hypokalemia (DC), Hypokalemia, Low Blood Sugar in People With Diabetes, Hypothyroidism (Underactive Thyroid) (DC) Additional Instructions: HOLLIE HU, thank you for letting us take care of you today. Your provider was Nora Romero MD and you were treated for DIABETIC. The emergency medical care you received today was directed at your acute symptoms. If you were presc ribed any medication, please fill it and take as directed. It may take several days for your symptoms to resolve. Return to the Emergency Department if your symptoms worsen, do not improve, or if you have any other problems. Please contact your doctor in 1-2 days for a follow up visit. Bring any pa perwork you were given at discharge with you along with any medications you are taking to your follow up visit. Our treatment cannot replace ongoing medical care by a primary care provider outside of the emergency department. Thank you for allowing the [facility] team to be part of your care today. If you had an X-Ray or CT scan: A Radiologist will review the ED reading if any change in treatment is needed we will contact you. If you had a blood, urine, or wound culture: It will take several days for the results, if any change in treatment is needed we will contact you. If you had an STI test: It will take 48 hours for the results. Please call after 1 week if you have not heard back. Forms: [employer] (Vietnamese)
--- NOTE | 2018-09-11 09:25 | CARD ---
APPROVED REPORT Date of service: 09/11/2018 EKG Measurement Heart [id number] KS [id number] <Conclusion> Normal sinus rhythm NSSTW changes and Prolonged QT, new
--- NOTE | 2018-09-11 10:37 | CT ---
Date of service: 09/11/2018 PROCEDURE: CT HEAD WITHOUT CONTRAST. HISTORY: confused COMPARISON: None available. TECHNIQUE: Axial computed tomography images were obtained through the head/brain without intravenous contrast. Radiation dose: Total exam DLP = 1755.18 mGy-cm. This CT exam was performed using one or more of the following dose reduction techniques: Automated exposure control, adjustment of the mA and/or kV according to patient size, and/or use of iterative reconstruction technique. FINDINGS: HEMORRHAGE: No intracranial hemorrhage. BRAIN: Normal anderson-white matter differentiation and density are appreciated throughout the cerebrum and cerebellum with the brainstem appearing unremarkable as well. There is no mass effect. There is no suspicious extra-axial fluid collection and the midline brain anatomy appears diffusely unremarkable. VENTRICLES: Unremarkable. No hydrocephalus. CALVARIUM: Unremarkable. PARANASAL SINUSES: Unremarkable as visualized. No significant inflammatory changes. MASTOID AIR CELLS: Unremarkable as visualized. No inflammatory changes. OTHER FINDINGS: None. IMPRESSION: Unremarkable noncontrast head CT. No signal change fibroid CT dated 03/01/2014. Concordant preliminary report from [facility], 09/11/2018 7:13 a.m..
[2018-09-11 11:15] VITALS: BP 117/70; PULSE 78; TEMP 98.1; O2SAT 99
== END 2018-09-11 12:10 | disposition home or self-care (01) ==
LOC: ED 06:11
DX: E11.649 Type 2 diabetes mellitus with hypoglycemia without coma (principal); E11.65 Type 2 diabetes mellitus with hyperglycemia; E03.9 Hypothyroidism, unspecified; E87.6 Hypokalemia; E78.5 Hyperlipidemia, unspecified; Z87.891 Personal history of nicotine dependence; Z83.3 Family history of diabetes mellitus
CPT/HCPCS: 70450; 71045; 80053; 82550; 83615; 84443; 84484; 85025; 85610; 85730; 93005; 99285; G0480

== ENCOUNTER 2018-10-28 03:21 | Emergency (ER) | payer BC ==
[2018-10-28 03:33] VITALS: BMI 31.5
[2018-10-28 03:40] VITALS: BP 113/72; PULSE 87; RESP 16; TEMP 97.4; O2SAT 93
--- NOTE | 2018-10-28 04:19 | ED PDOC ---
Arrival/HPI - General Chief Complaint: Weakness/Neurological Deficit Time Seen by Provider: 10/28/18 03:24 Historian: Patient - History of Present Illness Narrative History of Present Illness (Text): 10/28/18 03:25 58 year old male, whose past medical history includes IDDM, hypothyroidism, hyperlipidemia, presents to the emergency department by EMS following apparent seizure episode. As per history obtained, patient was at a club may have had low blood sugar at the time. Witnesses describes seizure like activity and patient was briefly posticle. Ambulance upon arrival administered glucagon to patient. Following, patient became more alert. Patient does not remember what happened and currently states he feels betters. Patient denies any fever, chills, chest pain, shortness of breath, nausea, vomiting, diarrhea, urinary symptoms, back pain, neck pain, headache, dizziness, or any other complaints. Time/Duration: Prior to Arrival Symptom Onset: Sudden Symptom Course: Improving Activities at Onset: Light Past Medical History - Provider Review Nursing Documentation Reviewed: Yes - Past History Past History: No Previous - Infectious Disease Hx of Infectious Diseases: None - Tetanus Immunization Tetanus Immunization: Unknown - Cardiac Hx Cardiac Disorders: No - Pulmonary Hx Respiratory Disorders: (SMOKE H/O QUIT) - Neurological Hx Neurological Disorder: No - HEENT Hx HEENT Disorder: No - Renal Hx Renal Failure: No - Endocrine/Metabolic Hx Endocrine Disorders: (dka) Hx Diabetes Mellitus Type 1: Yes - Hematological/Oncological Hx Blood Disorders: No - Integumentary Hx Dermatological Disorder: No (multiple tatoos) - Musculoskeletal/Rheumatological Hx Musculoskeletal Disorders: Yes (OSTEOMYELITIS) - Gastrointestinal Hx Gastrointestinal Disorders: Yes (gastroparesis) - Genitourinary/Gynecological Hx Genitourinary Disorders: No - Psychiatric Hx Psychophysiologic Disorder: (SMOKE AND ALCOHOL DRINKER H/O) Hx Substance Use: No (PAST ABUSE-NONE X 29 YRS) - Surgical History Hx Appendectomy: Yes Other/Comment: left shoulder from abcess - Anesthesia Hx Anesthesia Reactions: No Hx Malignant Hyperthermia: No - Suicidal Assessment Feels Threatened In Home Enviroment: No Family/Social History - Physician Review Nursing Documentation Reviewed: Yes Family/Social History: No Known Family HX Smoking Status: Former Smoker Hx Alcohol Use: No (PAST ETOH-NONE X 19YRS) Hx Substance Use: No (PAST ABUSE-NONE X 29 YRS) Hx Substance Use Treatment: No Allergies/Home Meds Allergies/Adverse Reactions: Allergies No Known Allergies Allergy (Verified 10/28/18 03:31) Home Medications: Home Meds Medication Instructions Recorded Confirmed Insulin Aspart/Insulin Aspar 50 units SC ACHS 06/30/17 10/28/18 [Novolog Mix 70/30 (70/30 units/ml)] Atorvastatin [Lipitor] 20 mg PO DAILY 09/11/18 10/28/18 Levothyroxine [Synthroid] 50 mcg PO DAILY 09/11/18 10/28/18 Review of Systems - Physician Review All systems were reviewed & negative as marked: Yes - Review of Systems Constitutional: absent: Fevers, Other (chills) Respiratory: absent: SOB Cardiovascular: absent: Chest Pain Gastrointestinal: absent: Diarrhea, Nausea, Vomiting Genitourinary Male: absent: Dysuria, Frequency, Hematuria Musculoskeletal: absent: Back Pain, Neck Pain Neurological: Seizure. absent: Headache, Dizziness Physical Exam Vital Signs Reviewed: Yes Vital Signs Temp Pulse Resp BP Pulse Ox 10/28/18 03:39 97.4 F L 87 16 113/72 93 L Temperature: Afebrile Blood Pressure: Normal Pulse: Regular Respiratory Rate: Normal Appearance: Positive for: Well-Appearing, Non-Toxic, Comfortable Pain Distress: None Mental Status: Positive for: Alert and Oriented X 3 Finger Stick Blood Glucose: 165 - Systems Exam Head: Present: Atraumatic, Normocephalic Pupils: Present: PERRL Extroacular Muscles: Present: EOMI Conjunctiva: Present: Normal Mouth: Present: Moist Mucous Membranes Neck: Present: Normal Range of Motion Respiratory/Chest: Present: Clear to Auscultation, Good Air Exchange. No: Respiratory Distress, Accessory Muscle Use Cardiovascular: Present: Regular Rate and Rhythm, Normal S1, S2. No: Murmurs Abdomen: No: Tenderness, Distention, Peritoneal Signs Back: Present: Normal Inspection Upper Extremity: Present: Normal Inspection. No: Cyanosis, Edema Lower Extremity: Present: Normal Inspection. No: Edema Neurological: Present: GCS=15, CN II-XII Intact, Speech Normal Skin: Present: Warm, Dry, Normal Color. No: Rashes Psychiatric: Present: Alert, Oriented x 3, Normal Insight, Normal Concentration Medical Decision Making ED Course and Treatment: 10/28/18 03:35 Impression: 58 year old male presents for evlaution s/p witnessed possible seizure at a club with also low blood sugar. Plan: -- CT Head w/o contrast -- EKG -- Labs -- Chest X-ray -- Reassess and disposition Prior Visits: Notes and results from previous visits were reviewed. Progress Notes: EKG shows NSR at 87 BPM Normal EKG. Interpreted by me. 10/28/18 05:22 CXR Impression: As read by me, no acute process. CT SCAN OF THE BRAIN WITHOUT IV CONTRAST Electronically signed on Oct 28, 2018 5:32:47 AM EST by: Jovani Schroeder M.D IMPRESSION: Normal unenhanced CT scan of the brain. Mild chronic mucosal inflammatory changes of the maxillary sinuses and ethmoid air cells. 10/28/18 05:58 Leaving Against Medical Advice (AMA): The patient is choosing to leave against medical advice. I have personally explained to the patient that choosing to do so may result in permanent bodily harm, disability, or . I have discussed at great length that without further evaluation and monitoring there may be unforeseen circumstances and/or deterioration causing permanent bodily harm or as a result of their choice. The patient is alert, oriented, and shows the mental capacity to make clear decisions regarding the patients health care at this time. The patient continues to wish to leave against medical advice. In light of the patients decision to leave against medical advice, follow-up has been arranged and the patient is aware of the importance to following up as instructed. The patient has been advised that they should return to the emergency room immediately if they change their mind at any time, or if their condition begins to change or worsen in any way. 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 I have reviewed the chart and agree that the record accurately reflects my personal performance of the history, physical exam, medical decision making, and the department course for this patient. I have also personally directed, reviewed, and agree with the discharge instructions and disposition. Disposition/Present on Arrival - Present on Arrival Any Indicators Present on Arrival: No History of DVT/PE: No History of Uncontrolled Diabetes: Yes Urinary Catheter: No History of Decub. Ulcer: No History Surgical Site Infection Following: None - Disposition Have Diagnosis and Disposition been Completed?: Yes Diagnosis: Seizure, Hypoglycemia Disposition: AGAINST MEDICAL ADVICE Disposition Time: 06:04 Condition: STABLE Forms: [employer] (Croatian)
[2018-10-28 04:51] LABS: HEMOGLOBIN 12.7 g/dL (14.0-18.0); MEAN CELL VOLUME 82.1 fl (80.0-105.0); MEAN CORPUSCULAR HGB CONC 32.9 g/dl (31.0-37.0); MEAN PLATELET VOLUME 12.7 fl (7.0-11.0); RBC 4.7 10^6/uL (3.5-6.1); RED CELL DISTRIBUTION WIDTH 14.5 % (11.5-14.5); WHITE BLOOD COUNT 12.1 10^3/uL (4.5-11.0)
[2018-10-28 04:55] LABS: INR 0.99; PARTIAL THROMBOPLASTIN TIME 31.3 Seconds (26.9-38.3); PROTHROMBIN TIME 11.2 SECONDS (9.4-12.5)
[2018-10-28 05:01] LABS: ALB/GLOB RATIO 1.4 (1.1-1.8); ALBUMIN 4.3 g/dL (3.0-4.8); ALT/SGPT 27 U/L (7-56); AST/SGOT 31 U/L (17-59); BLOOD UREA NITROGEN 28 mg/dL (7-21); CALCIUM 9.5 mg/dL (8.4-10.5); GFR NON-AFRICAN AMERICAN > 60
[2018-10-28] MEDS ORDERED: Potassium Chloride 20 mEq ER Tab PO STA (05:07)
[2018-10-28 05:12] LABS: TROPONIN I < 0.01 ng/mL
[2018-10-28 05:23] LABS: CK-MB 4.5 ng/mL (0.0-3.6)
--- NOTE | 2018-10-28 11:38 | RAD ---
Date of service: 10/28/2018 HISTORY: 12/28/2012 seizure. COMPARISON: Comparison chest 09/11/2018. Comparison also made with CTA chest dated 12/28/2012 FINDINGS: LUNGS: Mild bibasilar atelectasis nodular opacity in the right medial upper lobe felt to represent bony changes 1st rib at the level of the costal cartilage junction. PLEURA: No significant pleural effusion identified, no pneumothorax apparent. CARDIOVASCULAR: No aortic atherosclerotic calcification present. Heart size borderline enlarged no pulmonary vascular congestion. OSSEOUS STRUCTURES: No significant abnormalities. VISUALIZED UPPER ABDOMEN: Normal. OTHER FINDINGS: None. IMPRESSION: Mild bibasilar atelectasis
--- NOTE | 2018-10-28 11:44 | CT ---
Date of service: 10/28/2018 PROCEDURE: CT HEAD WITHOUT CONTRAST. HISTORY: Syncope-seizure. COMPARISON: Comparison made with prior study 09/11/2018. TECHNIQUE: Axial computed tomography images were obtained through the head/brain without intravenous contrast. Radiation dose: Total exam DLP = 867.21 mGy-cm. This CT exam was performed using one or more of the following dose reduction techniques: Automated exposure control, adjustment of the mA and/or kV according to patient size, and/or use of iterative reconstruction technique. FINDINGS: HEMORRHAGE: No acute parenchymal, subarachnoid nor extra-axial hemorrhage. BRAIN: Mild-moderate generalized volume loss. VENTRICLES: Unremarkable. No hydrocephalus. CALVARIUM: Unremarkable. PARANASAL SINUSES: Mild mucosal thickening seen within both maxillary antra right greater than left. Minor mucosal thickening noted within several ethmoid air cells. MASTOID AIR CELLS: Unremarkable as visualized. No inflammatory changes. OTHER FINDINGS: None. IMPRESSION: No acute intracranial hemorrhage. Mild moderate generalized volume loss.
--- NOTE | 2018-10-28 21:26 | CARD ---
APPROVED REPORT Date of service: 10/28/2018 EKG Measurement Heart [id number] <Conclusion> Normal sinus rhythm Normal ECG
== END 2018-10-28 06:19 | disposition left against medical advice (07) ==
LOC: ED 03:21
DX: R56.9 Unspecified convulsions (principal); E78.5 Hyperlipidemia, unspecified; E10.649 Type 1 diabetes mellitus with hypoglycemia without coma; Z79.4 Long term (current) use of insulin; E03.9 Hypothyroidism, unspecified; Z87.891 Personal history of nicotine dependence